=== PATIENT | female | born 1995 | race Native Hawaiian/Other Pacific Islander ===

== ENCOUNTER → 2021-06-19 10:39 | Outpatient (CLI) | payer OTHER, SELFPAY ==
[2021-06-19 11:26] LABS: Add Manual Diff / Slide Review NO; Basophils Absolute Auto 0 /uL (0-100); Basophils Percent Auto 0.3 % (0-2); Eosinophils Absolute Auto 100 /uL (0-450); Eosinophils Percent Auto 1.4 % (2-4); Hematocrit 38.2 % (36-46); Lymphocytes Absolute Auto 1400 /uL (1100-4500); Lymphocytes Percent Auto 20.7 % (25-40); Mean Corpuscular HGB Conc 34.1 % (30-36); Mean Corpuscular Hemoglobin 31.8 PG (26-34); Mean Corpuscular Volume 93.3 fL (80-100); Monocytes Absolute Auto 500 /uL (0-900); Monocytes Percent Auto 7.3 % (3-14); Neutrophils Absolute Auto 4800 /uL (1500-7000); Neutrophils Percent Auto 70.3 % (50-75); Platelet Count 234 X10^3/uL (150-400); Red Blood Cell Count 4.09 X10^6/uL (4.0-5.2); Red Cell Distribution Width 13.5 % (11.6-14.8); White Blood Cell Count 6.9 X10^3/uL (4.5-11.0)
[2021-06-19 11:44] LABS: Appearance Urine UA CLEAR; Bilirubin Urine UA NEGATIVE (NEGATIVE); Color Urine UA YELLOW; Glucose Urine UA NEGATIVE (Negative); Ketones Urine UA NEGATIVE (NEGATIVE); Leukocyte Esterase Urine UA 1+ (NEGATIVE); Nitrite Urine UA NEGATIVE (Negative); Occult Blood Urine UA NEGATIVE (Negative); Protein Urine UA NEGATIVE (Negative); Specific Gravity Urine UA 1.015 (1.000-1.035); Urobilinogen Urine UA 0.2 E.U./dL (0.2)
[2021-06-19 11:45] LABS: Bacteria Urine None Seen; RBC Urine None Seen (0-5/HPF)
[2021-06-19 11:53] LABS: Amorphous Sediment Urine 3+; Squamous Epithelial Cell Urine 5-10 /HPF (0-5/HPF); Transitional Epi Cells Urine 1-5/HPF (0-5/HPF); WBC Urine 5-10/HPF (0-5/HPF)
[2021-06-19 12:20] LABS: Hepatitis B Surface Antigen NEGATIVE s/c (NEGATIVE)
[2021-06-19 12:45] LABS: HIV 1 & 2 Ab/Ag 4th Gen Combo NEGATIVE (NEGATIVE); Hep C Virus Ab w/Reflex Quant NEGATIVE s/c (NEGATIVE)
[2021-06-20 08:43] LABS: RPR Screen Non Reactive (Non Reactive)
[2021-06-20 10:09] LABS: Varicella IgG Antibody 2834 index (Immune >165)
[2021-06-24 16:16] LABS: Rubella Antibody IgG 83.4 IU/mL (>15)
== END ==
PROVIDERS: Referring Provider Family Medicine; Visit Provider Family Medicine
DX: Z34.01 Encounter for supervision of normal first pregnancy, first trimester (principal)
CPT/HCPCS: 36415; 80055; 81003; 81015; 86787; 86803; 86850; 86900; 86901; 87077; 87086; 87186; 87389

== ENCOUNTER → 2021-07-17 11:36 | Outpatient (CLI) | payer OTHER, SELFPAY | PROVIDERS: PCP Family Medicine; Visit Provider Family Medicine | DX: Z34.90 Encounter for supervision of normal pregnancy, unspecified, unspecified trimester (principal); N39.0 Urinary tract infection, site not specified | CPT/HCPCS: 87086 ==

== ENCOUNTER → 2021-09-24 10:55 | Outpatient (CLI) | payer OTHER, SELFPAY ==
--- NOTE | 2021-09-24 10:56 | DI.US.S_ITS ---
PROCEDURE: US OB >= 14 WEEKS FETUS INDICATIONS: ANATOMY OUTSIDE/PRIOR DATING DATA: Last menstrual period (LMP): 04/19/2021. LMP-based estimated date of delivery (CELESTE): 01/24/2022. First dating scan (date and location): 09/24/2021. Estimated date of delivery (CELESTE) from first dating scan: 01/19/2022. TECHNIQUE: Real-time scanning was performed of the fetus, with image documentation and biometric measurements. COMPARISON: None. FINDINGS: General: A single living intrauterine gestation is present. Presentation: Vertex. Placenta: Placental position is anterior , without previa. Amniotic fluid index: 15.5 cm, normal range is 5-24 cm. heart rate: 139 beats per minute. Maternal cervical canal: 4.4 cm long. Normal lower limit is 2.5 cm. biometrics: Biparietal diameter: 5.7 cm 23 weeks 4 days Head circumference: 21.0 cm 23 weeks 0 days Abdominal circumference: 18.3 cm 23 weeks 1 day Femur length: 4.2 cm 23 weeks 4 days Composite gestational age from present scan: 23 weeks 2 days Estimated weight and percentile: 580 g 78% Anatomic survey: Neuro: Ventricles are non-dilated at less than 10 mm. Cisterna magna is normal at 3-11 mm. Cerebellum has a slightly prominent appearance. Nuchal skin fold: Normal at less than 6 mm between 14-21 weeks gestational age. Face: Nose and lips, facial profile are normal. Spine: No evidence for spina bifida. Heart: 4-chambered heart is present, with normal ventricular outflow tracts. Diaphragm: Diaphragm is intact. Stomach: Left-sided stomach is present. Kidneys: No hydronephrosis. Normal is less than 5 mm in 2nd trimester, less than 7 mm in 3rd trimester. Cord: 3-vessel cord has orthotopic insertion. Bladder: Normal in size. Extremities: All 4 extremities identified. IMPRESSION: 1. Single live intrauterine with ultrasound gestational age of 23 weeks 2 days. 2. Questionable appearance of mildly prominent cerebellum. This could be secondary to fetus positioning and short interval imaging follow-up is recommended We strive to produce accurate, complete, and clear reports of imaging services. To assist us in improving patient care, this report was composed using standard report templates and voice recognition software. Therefore, it may contain abnormal punctuation, insertions and/or omissions. Occasional wrong-word or sound-alike substitutions may occur. Though we review the report and make efforts to correct it, we do recommend that the report be read carefully in proper context to recognize any text inaccuracies. Dictated by: Kenia Gaona M.D. on 09/24/2021 at 18:52 Approved by: Kenia Gaona M.D. on 09/24/2021 at 18:54
== END ==
PROVIDERS: PCP Family Medicine; Referring Provider Family Medicine; Visit Provider Family Medicine
DX: Z36.89 Encounter for other specified antenatal screening (principal); Z3A.23 23 weeks gestation of pregnancy
CPT/HCPCS: 76811

== ENCOUNTER → 2021-10-13 15:34 | Outpatient (CLI) | payer OTHER, SELFPAY ==
--- NOTE | 2021-10-13 15:35 | DI.US.S_ITS ---
PROCEDURE: US OB FOLLOW UP INDICATIONS: anatomy re-scan OUTSIDE/PRIOR DATING DATA: Last menstrual period (LMP): April 19, 2021. LMP-based estimated date of delivery (CELESTE): January 24, 2022. First dating scan (date and location): [facility]; September 24, 2021. Estimated date of delivery (CELESTE) from first dating scan: January 19, 2022. The calculations are made using the ultrasound CELESTE of January 19, 2022. TECHNIQUE: Real-time scanning was performed of the fetus, with image documentation and biometric measurements. COMPARISON: None. FINDINGS: General: A single living intrauterine gestation is present. Presentation: Transverse head right. Placenta: Placental position is anterior , without previa. Amniotic fluid index: 18.7 cm, normal range is 5-24 cm. Single deepest vertical pocket is 6.1 cm. heart rate: 136 beats per minute. Maternal cervical canal: 5.4 cm long. Normal lower limit is 2.5 cm. Anatomic survey: Neuro: Redemonstrated prominence of the cerebellar, now measuring 27.7 mm. IMPRESSION: Redemonstrated prominence of the cerebellum. We strive to produce accurate, complete, and clear reports of imaging services. To assist us in improving patient care, this report was composed using standard report templates and voice recognition software. Therefore, it may contain abnormal punctuation, insertions and/or omissions. Occasional wrong-word or sound-alike substitutions may occur. Though we review the report and make efforts to correct it, we do recommend that the report be read carefully in proper context to recognize any text inaccuracies. Dictated by: Roland Brown M.D. on 10/13/2021 at 16:17 Approved by: Rloand Brown M.D. on 10/13/2021 at 16:27
== END ==
PROVIDERS: PCP Family Medicine; Referring Provider Family Medicine; Visit Provider Family Medicine
DX: Z36.2 Encounter for other antenatal screening follow-up (principal); Z3A.24 24 weeks gestation of pregnancy
CPT/HCPCS: 76816

== ENCOUNTER → 2021-11-10 12:42 | Outpatient (CLI) | payer OTHER, SELFPAY ==
[2021-11-10 15:29] LABS: GTT (PREG) 1 Hour PP 50gm Dose 135 mg/dL (76-139)
== END ==
PROVIDERS: PCP Family Medicine; Referring Provider Family Medicine; Visit Provider Family Medicine
DX: Z34.90 Encounter for supervision of normal pregnancy, unspecified, unspecified trimester (principal)
CPT/HCPCS: 36415; 82950

== ENCOUNTER → 2021-11-23 12:31 | Outpatient (CLI) | payer OTHER, SELFPAY ==
[2021-11-24 12:24] LABS: Strep Grp B PCR NEG for Grp B Strep
== END ==
PROVIDERS: PCP Family Medicine; Visit Provider Family Medicine
DX: Z36.85 Encounter for antenatal screening for Streptococcus B (principal)
CPT/HCPCS: 87653

== ENCOUNTER → 2021-12-23 10:23 | Outpatient (CLI) | payer OTHER, SELFPAY ==
[2021-12-24 14:55] LABS: Strep Grp B PCR NEG for Grp B Strep
== END ==
PROVIDERS: PCP Family Medicine; Visit Provider Family Medicine
DX: Z34.90 Encounter for supervision of normal pregnancy, unspecified, unspecified trimester (principal); Z3A.35 35 weeks gestation of pregnancy
CPT/HCPCS: 87653

== ENCOUNTER 2022-01-27 03:40 | Outpatient (CLI) | payer OTHER, SELFPAY | END 2022-01-27 05:15 | disposition home or self-care (01) | LOC: OB 02-02 07:40 | PROVIDERS: PCP Family Medicine; Referring Provider Family Medicine; Visit Provider Family Medicine | DX: O47.1 False labor at or after 37 completed weeks of gestation (principal); O48.0 Post-term pregnancy; Z3A.40 40 weeks gestation of pregnancy | CPT/HCPCS: 59025; G0378; G0379 ==

== ENCOUNTER 2022-01-27 18:30 | Inpatient (IN) | payer OTHER, SELFPAY ==
--- NOTE | 2022-01-27 18:47 | PM.AN.REGBLK ---
Regional Block Pre-procedure PMH/ROS narrative: term labor. 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 Stable in size 11/2020.? Cerebellum prominence on u/s - referral to MFM placed, no abnormality on f/u ultrasound - followed by MFM.? Cleared for normal OB care. Allergies: Allergies Allergy/AdvReac Type Severity Reaction Status Date / Time No Known Drug Allergies Allergy Verified 06/17/21 15:33
[2022-01-27] MEDS: LACTATED RINGERS 1,000 ML 100 ML IV ×2 (19:25→20:41)
[2022-01-27 19:47] LABS: Add Manual Diff / Slide Review NO; Basophils Absolute Auto 0 /uL (0-100); Basophils Percent Auto 0.2 % (0-2); Eosinophils Absolute Auto 0 /uL (0-450); Eosinophils Percent Auto 0.4 % (2-4); Hematocrit 39.5 % (36-46); Hemoglobin 13.5 g/dL (12.0-16.0); Lymphocytes Absolute Auto 1100 /uL (1100-4500); Lymphocytes Percent Auto 11.3 % (25-40); Mean Corpuscular HGB Conc 34.1 % (30-36); Mean Corpuscular Hemoglobin 31.9 PG (26-34); Mean Corpuscular Volume 93.5 fL (80-100); Monocytes Absolute Auto 500 /uL (0-900); Monocytes Percent Auto 4.8 % (3-14); Neutrophils Absolute Auto 8200 /uL (1500-7000); Neutrophils Percent Auto 83.3 % (50-75); Platelet Count 228 X10^3/uL (150-400); Red Blood Cell Count 4.23 X10^6/uL (4.0-5.2); Red Cell Distribution Width 12.9 % (11.6-14.8); White Blood Cell Count 9.9 X10^3/uL (4.5-11.0)
--- NOTE | 2022-01-27 20:48 | PM.AN.REGBLK ---
Regional Block Pre-procedure Procedure: Continuous Lumbar Epidural for L&D Attending OB provider: Mary Carter PMH/ROS narrative: term labor, no current complications. Seen by MFM earlier for concern for cerebellar cyst which appears to have resolved. MFM cleared pt for routine OB care. ASA Class: II Labs: Hct 39.5 % (36-46) 01/27/22 19:25 Plt Count 228 X10^3/uL (150-400) 01/27/22 19:25 Medications: Current Medications Generic Name Dose Route Start Last Admin Trade Name Freq PRN Reason Stop Dose Admin Calcium Carbonate 1,000 mg 01/27/22 19:36 Calcium Carbonate 500 Mg Tab PO Q2HR PRN Dyspepsia Carboprost Tromethamine 250 mcg 01/27/22 19:36 Carboprost 250 Mcg/Ml Ampul IM Q90M PRN Bleeding Diphenhydramine HCl 25 mg 01/27/22 19:36 Diphenhydramine 50 Mg/Ml Vial IV Q10M PRN Pruritis Fentanyl 50 mcg 01/27/22 19:36 Fentanyl 100 Mcg/2 Ml Inj IV Q1H PRN Pain, Moderate (4-6) Lactated Ringer's 1,000 mls @ 100 mls/hr 01/27/22 19:45 01/27/22 20:41 Lactated Ringers IV 100 mls/hr CONT THADDEUS Administration Oxytocin/Lactated Ringer's 30 unit in 500 mls @ 3 mls/hr 01/27/22 19:45 Oxytocin Premix IV TITRATE THADDEUS Protocol 3 MILLIUNIT/MIN Tranexamic Acid 1,000 mg/ 100 mls @ 200 mls/hr 01/27/22 19:36 Sodium Chloride IV NOW PRN Bleeding Oxytocin/Lactated Ringer's 30 unit in 500 mls @ 200 mls/hr 01/27/22 19:36 Oxytocin Premix IV CONT PRN Bleeding Protocol FENT 2MCG/ML BUPIV 0.125% EPI 200 mcg in 100 mls @ 6 mls/hr 01/27/22 19:45 Fentanyl/Bupiv/Ns 2mcg/Ml - 0.125% EPIDURAL CONT THADDEUS Methylergonovine Maleate 0.2 mg 01/27/22 19:36 Methylergonovine 0.2 Mg/Ml Vial IM NOW PRN Bleeding Methylergonovine Maleate 0.2 mg 01/27/22 19:36 Methylergonovine 0.2 Mg Tablet PO Q6HR PRN Heavy Bleeding Misoprostol 1,000 mcg 01/27/22 19:36 Misoprostol 200 Mcg Tablet MA NOW PRN Bleeding Misoprostol 800 mcg 01/27/22 19:36 Misoprostol 200 Mcg Tablet MA NOW PRN Bleeding Misoprostol 400 mcg 01/27/22 19:36 Misoprostol 200 Mcg Tablet SL NOW PRN Bleeding Nalbuphine HCl 2.5 mg 01/27/22 19:36 Nalbuphine 20 Mg/Ml Ampul IV Q10M PRN Pruritis Naloxone HCl 0.2 mg 01/27/22 19:36 Naloxone 0.4 Mg/Ml Vial IV Q2MIN PRN Opiate Reversal Ondansetron HCl 4 mg 01/27/22 19:36 Ondansetron 4 Mg/2 Ml Inj IV Q4HR PRN Nausea And Vomiting Oxytocin 10 unit 01/27/22 19:36 Oxytocin 10 Unit/Ml Vial IM NOW PRN Bleeding Allergies: Allergies Allergy/AdvReac Type Severity Reaction Status Date / Time No Known Drug Allergies Allergy Verified 06/17/21 15:33 Procedure Insertion date: 01/27/22 Insertion time: 20:18 Prep/Local: betadine x3 and 1% lidocaine Interspace: L3-4 Patient position: sitting Needle: 18 gauge Hustead (CSE: 27g Pencan through Hustead, clear CSF, 1mL 0.25% bupiv MPF) Loss of resistance with: saline KARISSA at (cm): 4 Catheter placed at SKIN (cm): 8 Catheter in SPACE (cm): 4 Insertion: No CSF, No Blood, No Paresthesia with insertion, No Paresthesia with injection and No Test dose reaction Initial Medications TEST DOSE time: 20:19 TEST DOSE: 1.5% lidocaine with epinephrine 1:200k (mL): 3 BOLUS DOSE time: 20:34 BOLUS DOSE (mL): 5 BOLUS DOSE med: other (infusate) Infusion Initial rate (mL/hr): 6 Post-procedure Anesthesia time START: 20:08 Anesthesia time END: 10:58 Post-procedure Anesthesia Assessment: Yes CV function: HR/BP stable, Yes Resp function: RR/sat/airway adequate, Yes Mental status appropriate and No Anesthesia complications
[2022-01-27 21:21] LABS: COVID19 -Nasal RAPID Negative (Negative)
[2022-01-27] MEDS: FENT 2MCG/ML BUPIV 0.125% EPI 200 MCG/100 ML PLAST..BAG 6 MCG EPIDURAL (21:30)
[2022-01-28] MEDS: FENT 2MCG/ML BUPIV 0.125% EPI 200 MCG/100 ML PLAST..BAG 6 MCG EPIDURAL (03:58)
--- NOTE | 2022-01-28 04:06 | PM.OBHP.IH.1 ---
OB HPI Date/Time Date of admission: 01/27/22 Date Patient Seen: 01/28/22 Time Patient Seen: 04:07 History of Present Condition Chief complaint: Observe Labor and delivery CELESTE Calculator Estimated Delivery Date Method Current WG Current Estimate 01/25/22 Manual 40w 3d Final CELESTE - [place] Other Estimates 01/25/22 LMP (Certain) 40w 3d 01/25/22 Ultrasound #1 40w 3d Estimated Gestational Age (weeks): 40w3d : 1 Para: 0 Narrative: The pt is here with regular painful contractions. Pt reports contractions starting soon after her OB appt this afternoon with membrane sweep. They increased in frequency and intensity since then. She denies any vaginal bleeding or LOF. She is feeling her baby move regularly. The pts was complicated by cerebellar prominence seen on anatomy scan. This was not confirmed with MFM ultrasound, however on their ultrasound possible VSD, right lung mass, and adrenal cyst were noted. On echo and repeat ultrasound, none of these were confirmed and the remainder of the pts was without complication. care: good care, initiated at week # (8) and pounds weight gain (49) Dating criteria OB: LMP confirmed by 1st trimester US Ultrasounds: normal 1st trimester US and abnormal US findings Abnormal ultrasound findings: Cerebellum prominence on anatomy ultrasound, repeat normal. VSD, right lung mass (CPAM vs BPS), adrenal cyst on ultrasound; echo and repeat ultrasound normal. Obstetrical complications: none Medical complications OB: none Preadmission Labs Last OB Lab Results: Blood Type A Positive 01/27/22 19:25 01/27/22 Antibody Screen Negative 01/27/22 19:25 01/27/22 Hematocrit 39.5 % (36-46) 01/27/22 19:25 01/27/22 Hemoglobin 13.5 g/dL (12.0-16.0) 01/27/22 19:25 01/27/22 Hepatitis B Surface Antigen Negative s/c (NEGATIVE) 06/19/21 10:55 06/19/21 Hepatitis C Antibody Negative s/c (NEGATIVE) 06/19/21 10:55 06/19/21 Rubella Antibody 83.4 IU/mL (>15) 06/19/21 10:55 06/19/21 Varicella-Zoster IgG Antibody 2834 index (Immune >165) 06/19/21 10:55 06/19/21 Glucose 1 Hour 135 mg/dL (76-139) 11/10/21 14:00 11/10/21 Group B Streptococcus (PCR) Neg for grp b strep 12/23/21 10:23 12/23/21 -: Urine: negative External Labs -: Urine: negative Evaluation Evaluation Baseline heart rate: 140 Variability: Moderate (11-25) monitor accelerations: Present Monitor Decelerations: Absent Contraction Frequency (minutes): 3 Uterine Contraction Intensity: Strong/Firm Status: Category l Dilation (cm): 8 Effacement (%): 100 station: -1 Comments: After informed consent, AROM performed with production of clear fluid. [facility] Medical History (Updated 06/17/21 @ 15:52 by Delma Garcia RN) Abnormal Pap smear of cervix (~2016) Anxiety (~2015) Cerebellar cyst (~2016) Depression (~2015) Finger fracture, right (~2016) Migraines (~2016) Surgical History (Updated 06/17/21 @ 15:52 by Delma Garcia RN) S/P LASIK surgery (~11/2020) S/P tonsillectomy and adenoidectomy (~2018) [place] teeth extracted Family History (Updated 06/17/21 @ 16:00 by Delma Garcia RN) Mother Ectopic Father No problems noted. Grandmother Medical history unknown Grandfather Lung cancer metastatic to brain Hypertension Hyperlipidemia Diabetes mellitus Grandmother Arthritis Diabetes mellitus Hyperlipidemia Hypertension Heart disease Liver failure Kidney failure Grandfather Stroke Diabetes mellitus Heart disease Hyperlipidemia Hypertension Smoker Social History marital status: unmarried,living together number of children: 0 household members: significant other lives independently: Yes caregiver/support person: No housing: house pets and animals: Yes (3 dogs: safe, family friendly. ) education level: college (Some college.) occupational status: employed ([employer]) current occupational exposures/hazards: No (though some noise.) special kalen needs: No seatbelt use: always do you feel safe at home: Yes Smoking Status: Never smoker Tobacco: How many years used: 2 quit status: considering quitting second hand exposure: No alcohol intake: former (Pre-: maybe once a week. ) substance use type: does not use during the past year weight has: remained stable well-balanced diet: daily or most days daily servings fruits/ve or more times/day (5+ daily.) caffeine: Yes (Loves coffee, trying to cut down. Aware 1 cup/day. ) Type(s) of exercise: walking (Avid hiker, rockclimbing.) frequency: 1-2 times per week duration: > 90 minutes/day Meds Home Medications and Allergies Home Medications Medication Instructions Recorded Confirmed Type ascorbic acid (vitamin C) 500 mg 500 mg PO DAILY 06/17/21 01/27/22 History tablet ferrous sulfate 325 mg (65 mg 325 mg PO DAILY 06/17/21 01/27/22 History iron) tablet (Iron (ferrous sulfate)) omega 1-mqw-rfi-fish oil 120 1 cap PO DAILY 06/17/21 01/28/22 History mg-180 mg-500 mg capsule (Fish Oil) prenat.vits,adina,rla-oevx-bkbqp 1 tab PO DAILY 06/17/21 01/27/22 History Allergies Allergy/AdvReac Type Severity Reaction Status Date / Time No Known Drug Allergies Allergy Verified 06/17/21 15:33 OB Exam Narrative Exam Narrative: Gen: NAD, sitting comfortably in bed, appears well CV: RRR, no murmurs Resp: clear to auscultation bilaterally Abd: soft, nontender, gravid Ext: no edema Objective Labs Result Diagrams: 01/27/22 19:25 Labs: Laboratory Results - last 24 hr 01/27/22 01/27/22 01/27/22 19:25 19:25 19:25 WBC 9.9 RBC 4.23 Hgb 13.5 Hct 39.5 MCV 93.5 MCH 31.9 MCHC 34.1 RDW 12.9 Plt Count 228 Neut % (Auto) 83.3 H Lymph % (Auto) 11.3 L [place] % (Auto) 4.8 Eos % (Auto) 0.4 L Baso % (Auto) 0.2 Neut # (Auto) 8200 H Lymph # (Auto) 1100 [place] # (Auto) 500 Eos # (Auto) 0 Baso # (Auto) 0 SARS-CoV-2 (PCR) Negative Blood Type A Positive Antibody Screen Negative Assessment and Plan Assessment and Plan Assessment and Plan narrative: Pt is a 26yo at 40w3d who presented in active labor. GBS negative, Rh positive. complicated by abnormalities seen on anatomy ultrasound, not confirmed on repeat scans. AROM performed with production of clear fluid. - Expectant management, anticipate - Will recheck cervix in 1 hour, if no cervical change plan to initiate Pitocin - FHT reassuring - GBS negative, no prophylaxis indicated - Epidural in place for pain control
[2022-01-28] MEDS: OXYTOCIN PREMIX 30 UNIT/500 ML PLAST..BAG IV (05:13)
--- NOTE | 2022-01-28 05:18 | PM.OBPNLAB ---
Date/Time Date Patient Seen: 01/28/22 Time Patient Seen: 05:18 Pain Control Pain control: epidural Pelvic Exam Dilation (cm): 8 Effacement (%): 100 station: -1 Amniotic membrane status: Ruptured Contractions Monitor mode: External Contraction frequency (min): 3 Contraction pattern: Regular Contraction intensity: Strong/Firm Status status: Category l Heart Rate Baseline: 140 Monitor Accelerations: Present Monitor Decelerations: Absent Monitor Variability: Moderate Assessment and Plan Comments: Pt is a 26yo at 40w3d who presented in active labor.? GBS negative, Rh positive.? complicated by abnormalities seen on anatomy ultrasound, not confirmed on repeat scans.? AROM performed with production of clear fluid. No significant cervical change for the last 4.5hrs, despite AROM nearly 1.5hrs ago. Did not minimal cervical swelling on exam. Will initiate pitocin. - Expectant management, anticipate - Start pitocin, titrate as tolerated. Can place IUPC in the future if needed for pitocin titration. - FHT reassuring - GBS negative, no prophylaxis indicated - Epidural in place for pain control, functioning well
--- NOTE | 2022-01-28 12:24 | PM.OBPRVD ---
Labor & Delivery Delivery date: 01/28/22 Intrapartal Events: None Cervical ripening method: none Induction method: none Delivery augmentation: rupture of membranes and pitocin Delivery monitor: external FHT Route of delivery: Episiotomy description: None L&D Laceration Description: Perineal - 2nd Degree and Labial Delivery repair: vicryl and chromic Estimated blood loss (mL): 350 Anesthesia Type: Epidural Complications: None Narrative: PROCEDURE: at 40w3d presented in active labor and was admitted to Labor and Delivery. The patient progressed through the 1st stage over 18 hours. Pain was controlled with an epidural. AROM was performed with clear fluid present. Due to no cervical change beyond 8cm, pitocin was initiated and the pt progressed to complete. The patient progressed through the 2nd stage over 2 hours and delivered a viable female infant with APGARs 9/9 at 10:58 via without complications. The perineum and vagina were inspected with bilateral superior labial lacerations repaired with 3-O Chromic, and small 2nd degree perineal laceration repaired with 2-O Vicryl. PREPROCEDURE DIAGNOSIS: Intrauterine at 40w3d GBS negative RH positive POSTPROCEDURE DIAGNOSIS: Intrauterine at 40w3d, delivered Same as preprocedure [place] Baby 1: gender: Female Presentation: vertex Position: Left Occiput Anterior Placenta delivery description: Spontaneous Cord Vessel Description: 3 Vessels score (1 min): 9 score (5 min): 9 weight: 8 lb 3.4 oz Plan for aftercare: Routine care
[2022-01-28] MEDS: IBUPROFEN 600 MG TABLET PO ×2 (14:15→20:30)
[2022-01-28] MEDS: DERMOPLAST SPRAY 20% 60 ML 1 SPRAY TOP (14:15)
[2022-01-29] MEDS: IBUPROFEN 600 MG TABLET PO ×2 (03:42→09:13)
[2022-01-29] MEDS: ACETAMINOPHEN 325 MG TABLET 650 MG PO ×2 (03:42→09:14)
[2022-01-29 09:13] VITALS: TEMP 36.6
[2022-01-29] MEDS: PRENATAL VIT,CALC/IRON/FOLIC 1 TABLET 1 TAB PO (09:13)
[2022-01-29] MEDS: DOCUSATE 100 MG CAPSULE PO (09:13)
[2022-01-29 09:14] VITALS: TEMP 36.6
[2022-01-29] MEDS: LANOLIN OINT 7 GM 1 APPLIC TOP (09:15)
[2022-01-29 14:26] VITALS: BP 124/61; PULSE 74; RESP 16; TEMP 36.4
--- NOTE | 2022-01-29 14:46 | P.DS_ITS ---
Discharge Providers Provider Date of admission: 01/27/22 18:30 Discharge Date: 01/29/22 Primary care physician: Mary Carter MD Consults: 01/29/22 12:22 Consult to Wound Care Coordinator Routine Comment: Discharge provider: Mary Carter MD Summary Hospital Course Date Patient Seen: 01/29/22 Time Patient Seen: 08:10 Diagnoses: Intrauterine at 40w3d GBS negative RH positive Hospital Course: The pt presented in active labor. AROM was performed with production of clear fluid. Due to limited progress, pitocin was initiated. The pt progressed to complete and had an of a viable baby girl on 01/28/22 without complications. Bilateral labial and 2nd degree perineal lacerations were repaired. The pt tolerated delivery well. , there were no complications. At the time of discharge she was voiding, ambulating, and passing flatus without difficulty. Her lochia was decreasing appropriately. She was with good latch. Her pain was well controlled. She will f/u in 6 weeks for check. She plans on OCPs for contraception. Peripartum Data Infant Delivery Method: Natural Vaginal Laceration Description: Perineal - 2nd Degree and Labial Episiotomy description: None Procedures: Spontaneous vaginal delivery complications: none 1: Gender: Female Disposition of : home Discharge Diagnosis (1) Spontaneous vaginal delivery: Status: Acute Time Spent with Patient Time attestation: Total time spent providing and/or coordinating discharge services: Objective Labs Result Diagrams: 01/27/22 19:25 Exam Vital Signs (past 8 hours): - 01/29/22 09:13 01/29/22 09:14 01/29/22 14:26 Temperature 97.8 F 97.8 F 97.5 F L Pulse Rate 74 Respiratory Rate 16 Blood Pressure 124/61 Narrative Exam Narrative: Gen: NAD, sitting comfortably in bed, appears well CV: RRR, no murmurs Resp: clear to auscultation bilaterally Abd: soft, appropriately tender, fundus firm and below the umbilicus, nondistended Ext: no edema Discharge Plan Discharge Plan Patient Disposition: Home Discharge orders & Medications Prescriptions: New acetaminophen 325 mg Tablet 650 mg PO Q6HR PRN (Reason: Pain, Mild (1-3)) Qty: 30 0RF docusate sodium 100 mg Capsule 100 mg PO DAILY Qty: 30 0RF ibuprofen 600 mg Tablet 600 mg PO Q6HR PRN (Reason: Pain, Mild (1-3)) Qty: 30 0RF Continued prenat.vits,adina,djl-[id number]-faamb Tablet 1 tab PO DAILY 0RF Fish Oil 120-180-500 mg capsule 1 cap PO DAILY 0RF ferrous sulfate [Iron (ferrous sulfate)] 325 mg (65 mg iron) tablet 325 mg PO DAILY 0RF ascorbic acid (vitamin C) 500 mg tablet 500 mg PO DAILY 0RF Follow up/Referrals: Mary Carter MD [Primary Care Provider] - 6 Weeks (Please follow up with Dr. Carter on TuesdayFebruary 01 at 1pm with a 12:45pm check in time. If you have any questions/concerns please call .) Diet/Activity/Treatments Diet: Diet as Tolerated and Regular Skin/Wound/Dressing Care Report to your healthcare provider any signs of infection, such as:: chills, fever, increased pain and unusual drainage Visit Report/Discharge Packet Instructions: DI for Labor and Delivery, Vaginal Stand Alone Forms: Discharge: Care Visit Report Forms: Patient Portal/API, Stroke Signs & Symptoms Discharge Data Primary Care Provider: Mary Carter
== END 2022-01-29 15:40 | disposition home or self-care (01) | DRG 807 ==
PROVIDERS: Admitting Provider Specialist; PCP Family Medicine; Referring Provider Specialist; Visit Provider Specialist
DX: O48.0 Post-term pregnancy (principal); Z37.0 Single live birth; O70.1 Second degree perineal laceration during delivery; Z3A.40 40 weeks gestation of pregnancy
CPT/HCPCS: 01967; 59025; 59050; 59400; 85025; 86850; 86900; 86901; 87635; C9803; G0378; G0379; J2590